=== PATIENT | male | born 1970 | race African-American/Black ===

== ENCOUNTER 2017-02-10 16:40 | Inpatient (IN) | payer MEDICAID, OTHER ==
[~2017-02-10] VITALS: Ht 167.6 cm; Wt 78.3 kg
[2017-02-10] MEDS ORDERED: ATEN50TA PO (17:42)
[2017-02-10] MEDS ORDERED: LOSA50TA6 PO (17:42)
[2017-02-10 17:54] LABS: BASOPHILS % 0.2 % (0.0-2.0); EOSINOPHILS % 0.4 % (0.0-7.0); HEMATOCRIT 29.1 % (42.0-52.0); HEMOGLOBIN 9.5 g/dl (14.0-18.0); LYMPHOCYTES # 1.8 10^3/ul (0.8-2.9); LYMPHOCYTES % 17.4 % (15.0-51.0); MEAN CORPUSCULAR HEMOGLOBIN 28.2 pg (29.0-33.0); MEAN CORPUSCULAR HGB CONC 32.6 g/dl (32.0-37.0); MEAN CORPUSCULAR VOLUME 86.4 fl (82.0-101.0); MEAN PLATELET VOLUME 12.8 fl (7.4-10.4); MONOCYTE # 0.6 10^3/ul (0.3-0.9); MONOCYTES % 5.7 % (0.0-11.0); NEUTROPHIL # 7.9 10^3/ul (1.6-7.5); PLATELET COUNT 142 10^3/UL (140-415); RED BLOOD COUNT 3.37 10^6/ul (4.70-6.10); RED CELL DISTRIBUTION WIDTH 12.8 % (11.5-14.5); WHITE BLOOD COUNT 10.4 10^3/ul (4.8-10.8)
[2017-02-10 18:09] LABS: INR 1.16; PROTIME 14.9 Sec (12.2-14.2); PT RATIO 1.2
[2017-02-10 18:10] LABS: PARTIAL THROMBOPLASTIN TIME 28.3 Sec (25.0-35.0)
[2017-02-10 18:13] LABS: CREATININE 1.14 mg/dl (0.61-1.24); POTASSIUM 3.3 mmol/L (3.5-5.1)
--- NOTE | 2017-02-10 18:18 | ERD ---
ER Documentation Chief Complaint Chief Complaint RECTAL BLEEDING HPI This is a very pleasant 46-year-old male who presents to the emergency room with less than 12 hours of rectal bleeding. He describes approximately 3 episodes of bright red blood per rectum. It is painless. He denies any hematemesis nausea or vomiting. No abdominal pain or cramping. He did have some mild lightheadedness but no syncope. No recent travel sick contacts or antibiotics. He does take aspirin daily but denies any epigastric pain or melena. ROS All systems reviewed and are negative except as per history of present illness. Medications Home Meds Reported Medications Atenolol* (Atenolol*) 50 Mg Tablet, 50 MG PO DAILY, #30 TAB 02/10/17 Losartan Potassium* (Losartan Potassium*) 50 Mg Tablet, 50 MG PO DAILY, TAB 02/10/17 Allergies Allergies: Coded Allergies: No Known Allergy (Unverified , 02/10/17) PMhx/Soc History of Surgery: No Anesthesia Reaction: No Hx Neurological Disorder: No Hx Respiratory Disorders: No Hx Cardiac Disorders: Yes (HTN) Hx Psychiatric Problems: No Hx Miscellaneous Medical Probl: No Hx Alcohol Use: No Hx Substance Use: No Hx Tobacco Use: No Smoking Status: Never smoker FmHx Family History: No diabetes Physical Exam Vitals Vital Signs Date Time Temp Pulse Resp B/P Pulse Ox O2 Delivery O2 Flow Rate FiO2 02/10/17 16:42 97.9 72 18 177/85 100 Physical Exam General: Well developed, well nourished, no acute distress Head: Normocephalic, atraumatic. Eyes: Pupils equally reactive, EOM intact ENT: Moist mucous membranes Neck: Supple, no lymphadenopathy Respiratory: Lungs clear bilaterally, no distress Cardiovascular: RRR, no murmurs, rubs, or gallops Abdominal: Soft, non-tender, non-distended, no peritoneal signs : Chaperoned digital rectal examination reveals bright red blood, no external/ internal hemorrhoids, no melena, normal prostate without tenderness or bogginess MSK: No edema, no unilateral swelling, 5/5 strength Neurologic: Alert and oriented, moving all extremities, normal speech, no focal weakness, no cerebellar signs Skin: No rash no petechia or purpura Psych: Normal mood Result Diagram: 02/10/17 1737 02/10/17 1737 Results 24 hrs Laboratory Tests Test 02/10/17 17:37 White Blood Count 10.410^3/ul Red Blood Count 3.3710^6/ul Hemoglobin 9.5g/dl Hematocrit 29.1% Mean Corpuscular Volume 86.4fl Mean Corpuscular Hemoglobin 28.2pg Mean Corpuscular Hemoglobin Concent 32.6g/dl Red Cell Distribution Width 12.8% Platelet Count 67574^3/UL Mean Platelet Volume 12.8fl Neutrophils % 76.0% Lymphocytes % 17.4% Monocytes % 5.7% Eosinophils % 0.4% Basophils % 0.2% Nucleated Red Blood Cells % 0.0/100WBC Neutrophils # 7.910^3/ul Lymphocytes # 1.810^3/ul Monocytes # 0.610^3/ul Eosinophils # 0.010^3/ul Basophils # 0.010^3/ul Nucleated Red Blood Cells # 0.010^3/ul Prothrombin Time 14.9Sec Prothrombin Time Ratio 1.2 INR International Normalized Ratio 1.16 Activated Partial Thromboplast Time 28.3Sec Sodium Level 140mmol/L Potassium Level 3.3mmol/L Chloride Level 105mmol/L Carbon Dioxide Level 25mmol/L Anion Gap 13 Blood Urea Nitrogen 25mg/dl Creatinine 1.14mg/dl Glucose Level 99mg/dl Calcium Level 8.0mg/dl Current Medications Medications (Trade) Dose Ordered Sig/Devyn Route PRN Reason Start Time Stop Time Status Last Admin Dose Admin Ondansetron HCl (Zofran Inj) 4 mg BRIDGE ORDER PRN IV NAUSEA AND/OR VOMITING 02/10/17 19:00 02/11/17 18:59 Acetaminophen (Tylenol Tab) 650 mg ER BRIDGE PRN PO MILD PAIN/FEVER 02/10/17 19:00 02/11/17 18:59 Procedures/MDM EKG, MONITORS, & DIAGNOSTIC IMAGING: EKG: I reviewed and interpreted a 12-lead EKG. Rhythm: Normal sinus rhythm Ectopy: None Intervals: No abnormalities ST segments: No elevations or depressions T waves: No contiguous inversions LAB INTERPRETATION: Anemia of 9.5 MEDICAL DECISION MAKING: The patient presents with multiple episodes of bright red blood per rectum. This is likely consistent with acute lower GI bleed likely secondary to diverticulosis. The patient has a benign abdominal exam without signs or symptoms concerning for AV malformation or acute intra-abdominal process. He has no risk factors for aortoenteric fistula. He does not describe any diarrhea , melena or hematemesis. He has no risk factors for significant upper GI bleed. The only concerning symptom is that the patient had an episode of near syncope earlier today. He denied any prodrome of chest pain or shortness of breath. His EKG shows no evidence of arrhythmia. This does raise the concern for more brisk lower GI bleed. Additionally, the patient has a hemoglobin of 9.5 with no known history of anemia. These are concerning for more significant lower GI bleed that would warrant hospitalization, serial hemoglobin and likely GI consultation in the morning for potential colonoscopy. At this time I do not believe the patient warrants CT imaging of the abdomen and pelvis. He has a large-bore peripheral IV. He was typed and screened. No indication for transfusion. He is hemodynamically stable and asymptomatic currently. I kept the patient and/or family informed of laboratory and diagnostic imaging results throughout the emergency room course. DISPOSITION PLAN: Medical surgical admission for management of lower GI bleed CONSULTATION: Accepting care team and consultations: I discussed the current laboratory data, diagnostic imaging and emergency care provided. Admitting team: Dr. Nick Admitting team indication: Insurance directed Departure Diagnosis: Primary Impression: Lower GI bleed Additional Impression: Anemia Anemia type: unspecified type Qualified Code: D64.9 - Anemia, unspecified type Condition: Stable JOE ANN MD Feb 10, 2017 18:18
[2017-02-10] MEDS ORDERED: ACETAMINOPHEN 325 MG TAB PO PRN ×2 (19:00→20:30)
[2017-02-10] MEDS ORDERED: ONDANSETRON 4 MG INJ IV PRN ×2 (19:00→20:30)
[2017-02-10] MEDS ORDERED: SOD CHLORIDE 0.9% 1,000 ML IV SCH (20:26)
[2017-02-10] MEDS ORDERED: BISACODYL (EC) 5 MG TAB PO PRN (20:30)
[2017-02-10] MEDS ORDERED: NACL 0.9% 3 ML SYG IV SCH (20:30)
[2017-02-10] MEDS ORDERED: DOCUSATE SODIUM 100 MG CAP PO PRN (20:30)
[2017-02-10 21:45] VITALS: BP 185/103; RESP 20
[2017-02-10] MEDS ORDERED: POTASSIUM CHLORIDE 250 ML IVPB ONE (22:00)
[2017-02-10 22:08] VITALS: Ht 167.6 cm; Wt 78.3 kg
[2017-02-10 23:10] VITALS: BP 141/89
--- NOTE | 2017-02-11 01:01 | HP ---
Date/Time of Note Date/Time of Note DATE: 02/11/17 TIME: 00:57 Assessment/Plan VTE Prophylaxis VTE Prophylaxis Intervention: SCD's Lines/Catheters IV Catheter Type (from [facility] Saline Lock Assessment/Plan Chief Complaint/Hosp Course This ss a 38-year-old male being admitted to the [facility] floor for: #1 bright red blood per rectum: Patient's hemoglobin is 9.5. At the current time will check hemoglobin every 6 hours. Will check a fecal occult stool. Keep the patient n.p.o. Provide normal saline IV fluid hydration. BUN elevated at 25. Consult GI. Protonix IV. #2 hypokalemia: We will replete with KCl, also check a magnesium level. #3 hypertension: At the current time I will hold patient's blood pressure medications secondary to #1. And put in a as needed hydralazine order for systolic greater than 170. #4 thrombocytopenia: We will check HIV, HCV, may need hematology consultation. #5 bradycardia: patient asymptomatic, will hold atenolol. continue to monitor. Will need to replace with a different antihypertensive as I don't see any indication for atenolol in the setting of bradycardia. #6 DVT GI prophylaxis: SCDs, Protonix Further treatment strategy will be implemented as per the clinical course Problems: HPI/ROS Admit Date/Time Admit Date/Time Feb 10, 2017 at 18:36 Hx of Present Illness This is a very pleasant 46-year-old male who presents to the emergency room with less than 12 hours of rectal bleeding. He describes approximately 3 episodes of bright red blood per rectum. It is painless. He denies any hematemesis nausea or vomiting. No abdominal pain or cramping. He did have some mild lightheadedness but no syncope. No recent travel sick contacts or antibiotics. He does take aspirin daily but denies any epigastric pain or melena. Allergies: NKDA Medications: See NICOLA MAGUIRE Const: As per HPI Eyes : No pain discharge or redness or change in visual acuity ENT: No pain, sore throat, congestion, congestion, dysphagia or discharge Respiratory: No shortness of breath, cough, sputum, wheezing, or pleuritic pain Cardiovascular: No chest pain, palpitation, PND, or edema GI : As per HPI Genitourinary: No dysuria, hematuria, flank pain , discharge or CVA tenderness Musculoskeletal: No joint pain, back pain, neck pain, restricted range of motion in neck or joints Skin: No rash, bruising or hives Neuro: No headache, dizziness, syncope, seizure, focal weakness Endocrine: No polyuria, polydipsia, temperature intolerance Psych: No hallucination, depression, anxiety or suicidal ideation PMH/Family/Social Past Medical History Hypertension Past Surgical History Past Surgical Hx: no surgical history Family History Significant Family History: no pertinent family hx Social History Alcohol Use: none Smoking Status: Never smoker Drug Use: none Exam/Review of Systems Vital Signs Vitals Vital Signs Date Time Temp Pulse Resp B/P Pulse Ox O2 Delivery O2 Flow Rate FiO2 02/10/17 23:10 54 141/89 99 02/10/17 21:45 98.3 20 02/10/17 20:23 Room Air Exam Exam General: Patient is well-developed well-nourished The patient is alert oriented -3 lying comfortably in bed. HEENT: Atraumatic, normocephalic. The pupils are equal, round and reactive. Extraocular motor are intact Neck: Supple with full range of motion. No rigidity or meningismus Chest: Nontender Lungs: Clear to auscultation bilaterally no crackles rales or wheezing Heart: Normal S1-S2, Regular rhythm and rate. No murmur, S3, or S4 Abdomen: Soft , nontender, nondistended , bowel sounds are present. No guarding no rebound tenderness , No masses or organomegaly. No costovertebral temporal angle mass Extremities: Normal to inspection, no edema no cyanosis Neurologic: Normal mental status, speech normal, cranial nerves II through XII are intact, motor and sensory are intact, no focal weakness Rectal: Deferred however patient did show me a picture of his bloody BM that he took. Additional Comments EKG: I reviewed and interpreted a 12-lead EKG. Rhythm: Normal sinus rhythm Ectopy: None Intervals: No abnormalities ST segments: No elevations or depressions T waves: No contiguous inversions As per ED physician documentation Labs Result Diagram: 02/10/17173602/10/171736 Medications Medications Current Medications Sodium Chloride (NS) 1,000 ml @ 80 mls/hr [id number] IV Last administered on t 22:07; Admin Dose 80 MLS/HR; Start 02/10/17 at 20:26 Ondansetron HCl (Zofran Inj) 4 mg Q6H PRN IV NAUSEA AND/OR VOMITING; Start at 20:30 Acetaminophen (Tylenol Tab) 650 mg Q6H PRN PO PAIN LEVEL 1-3 OR FEVER; Start 02/10/17 at 20:30 Docusate Sodium (Colace) 100 mg Q12H PRN PO CONSTIPATION; Start 02/10/17 at 20 :30 Bisacodyl (Dulcolax) 5 mg DAILY PRN PO CONSTIPATION; Start 02/10/17 at 20:30 Pantoprazole 40 mg 40 mg DAILY@06 IV ; Start 02/11/17 at 06:00 Potassium Chloride (KCl 40 MEQ/250 ML NS) 250 ml @ 62.5 mls/hr ONCE ONCE IVPB Last administered on 02/10/17t 23:50; Admin Dose 62.5 MLS/HR; Start at 22:00; Stop 02/11/17 at 01:59 Hydralazine HCl (Apresoline) 10 mg Q4H PRN IV ELEVATED SYSTOLIC BP; Start at 23:00 MIRTHA BAILEY Feb 11, 2017 01:01
[2017-02-11 02:00] VITALS: BP 136/84; RESP 20
[2017-02-11] MEDS: PANTOPRAZOLE 40 MG INJ IV SCH (05:27)
[2017-02-11 06:15] LABS: BASOPHILS % 0.2 % (0.0-2.0); EOSINOPHILS # 0.1 10^3/ul (0.0-0.5); EOSINOPHILS % 2.4 % (0.0-7.0); HEMATOCRIT 24.3 % (42.0-52.0); LYMPHOCYTES # 1.4 10^3/ul (0.8-2.9); LYMPHOCYTES % 31.1 % (15.0-51.0); MEAN CORPUSCULAR HEMOGLOBIN 28.3 pg (29.0-33.0); MEAN CORPUSCULAR HGB CONC 32.9 g/dl (32.0-37.0); MEAN CORPUSCULAR VOLUME 85.9 fl (82.0-101.0); MEAN PLATELET VOLUME 12.6 fl (7.4-10.4); MONOCYTE # 0.3 10^3/ul (0.3-0.9); MONOCYTES % 7.2 % (0.0-11.0); NEUTROPHIL # 2.7 10^3/ul (1.6-7.5); NEUTROPHILS % 58.9 % (39.0-77.0); PLATELET COUNT 125 10^3/UL (140-415); RED BLOOD COUNT 2.83 10^6/ul (4.70-6.10); RED CELL DISTRIBUTION WIDTH 13.1 % (11.5-14.5); WHITE BLOOD COUNT 4.6 10^3/ul (4.8-10.8)
[2017-02-11 06:58] LABS: IRON 53 ug/dl (35-150)
[2017-02-11 07:08] LABS: TOTAL IRON BINDING CAPACITY 347 ug/dl (241-421)
[2017-02-11 07:24] LABS: ALBUMIN 2.9 g/dl (3.3-4.9); ALBUMIN/GLOBULIN RATIO 1.07; BILIRUBIN,INDIRECT 0.5 mg/dl (0-1.1); BILIRUBIN,TOTAL 0.5 mg/dl (0.2-1.3); CALCIUM 8.1 mg/dl (8.4-10.2); CHOL/HDL RATIO 4.1 RATIO; CREATININE 1.06 mg/dl (0.61-1.24); POTASSIUM 3.9 mmol/L (3.5-5.1); TOTAL PROTEIN 5.6 g/dl (6.1-8.1)
[2017-02-11 07:33] LABS: THYROID STIMULATING HORMONE 1.67 MIU/L (0.465-4.680)
[2017-02-11 07:58] VITALS: BP 137/87; RESP 18
[2017-02-11] MEDS ORDERED: ATENOLOL 50 MG TAB PO SCH (09:00)
[2017-02-11] MEDS ORDERED: LOSARTAN 50 MG TAB PO SCH (09:00)
--- NOTE | 2017-02-11 11:18 | PN ---
Date/Time of Note Date/Time of Note DATE: 02/11/17 TIME: 11:15 Assessment/Plan VTE Prophylaxis VTE Prophylaxis Intervention: contraindicated Lines/Catheters IV [facility] Peripheral IV Assessment/Plan Chief Complaint/Hosp Course Subjective: Still bleeding. Bright red blood per rectum. No abdominal pain fever nausea vomiting. No family history of cancer etc. No warning signs. States he had some pumpkin seeds the other day. Dizziness weakness. No loss of speech or vision. Objective: Vital signs stable. His exam No pallor adenopathy Regular no murmur rub gallop Clear Bs+ mild tender nontender nondistended no rigidity rebound guarding Edema rash Assessment plan 1. Lower GI bleed probably diverticulosis. Stable, n.p.o. IV fluids colonoscopy. Probable diverticular diet management 2. Acute blood loss anemia 3. Chronic hypertension 4. Sinus bradycardia asymptomatic. tsh o -May proceed to colonoscopy from medical standpoint.. Problems: Exam/Review of Systems Vital Signs Vitals Vital Signs Date Time Temp Pulse Resp B/P Pulse Ox O2 Delivery O2 Flow Rate FiO2 02/11/17 07:58 98.5 62 18 137/87 100 02/10/17 20:23 Room Air Intake and Output 02/10/17 02/10/17 02/11/17 15:00 23:00 07:00 Intake Total 594 ml Output Total 300 ml Balance 294 ml Results Result Diagram: 02/11/17 0542 02/11/17 0541 Results 24 hrs Laboratory Tests Test 02/10/17 17:37 02/11/17 05:41 02/11/17 05:42 02/11/17 05:45 White Blood Count 10.4 4.6 #L Red Blood Count 3.37 L 2.83 L Hemoglobin 9.5 L 8.0 L Hematocrit 29.1 L 24.3 L Mean Corpuscular Volume 86.4 85.9 Mean Corpuscular Hemoglobin 28.2 L 28.3 L Mean Corpuscular Hemoglobin Concent 32.6 32.9 Red Cell Distribution Width 12.8 13.1 Platelet Count 142 125 L Mean Platelet Volume 12.8 H 12.6 H Neutrophils % 76.0 58.9 Lymphocytes % 17.4 31.1 Monocytes % 5.7 7.2 Eosinophils % 0.4 2.4 Basophils % 0.2 0.2 Nucleated Red Blood Cells % 0.0 0.0 Neutrophils # 7.9 H 2.7 Lymphocytes # 1.8 1.4 Monocytes # 0.6 0.3 Eosinophils # 0.0 0.1 Basophils # 0.0 0.0 Nucleated Red Blood Cells # 0.0 0.0 Prothrombin Time 14.9 H Prothrombin Time Ratio 1.2 INR International Normalized Ratio 1.16 Activated Partial Thromboplast Time 28.3 Sodium Level 140 144 Potassium Level 3.3 L 3.9 Chloride Level 105 112 H Carbon Dioxide Level 25 27 Anion Gap 13 9 Blood Urea Nitrogen 25 H 19 Creatinine 1.14 1.06 Glucose Level 99 93 Calcium Level 8.0 L 8.1 L Magnesium Level 1.8 Iron Level 53 Total Iron Binding Capacity 347 Percent Iron Saturation 15 L Total Bilirubin 0.5 Direct Bilirubin 0.00 Indirect Bilirubin 0.5 Aspartate Amino Transf (AST/SGOT) 17 Alanine Aminotransferase (ALT/SGPT) 28 Alkaline Phosphatase 38 L Total Protein 5.6 L Albumin 2.9 L Globulin 2.70 Albumin/Globulin Ratio 1.07 Triglycerides Level 76 Cholesterol Level 117 LDL Cholesterol, Calculated 74 HDL Cholesterol 28 Cholesterol/HDL Ratio 4.1 Thyroid Stimulating Hormone (TSH) 1.670 Hemoglobin A1c 5.2 Hepatitis C Antibody NEGATIVE HIV (1&2) Antibody NEGATIVE Medications Medications Current Medications Sodium Chloride (NS) 1,000 ml @ 80 mls/hr [id number] IV Last administered on 22:07; Admin Dose 80 MLS/HR; Start 02/10/17 at 20:26 Ondansetron HCl (Zofran Inj) 4 mg Q6H PRN IV NAUSEA AND/OR VOMITING; Start at 20:30 Acetaminophen (Tylenol Tab) 650 mg Q6H PRN PO PAIN LEVEL 1-3 OR FEVER; Start 02/10/17 at 20:30 Docusate Sodium (Colace) 100 mg Q12H PRN PO CONSTIPATION; Start 02/10/17 at 20 :30 Bisacodyl (Dulcolax) 5 mg DAILY PRN PO CONSTIPATION; Start 02/10/17 at 20:30 Pantoprazole (Protonix Iv) 40 mg DAILY@06 IV Last administered on 02/11/17 05 :27; Admin Dose 40 MG; Start 02/11/17 at 06:00 Hydralazine HCl (Apresoline) 10 mg Q4H PRN IV ELEVATED SYSTOLIC BP; Start at 23:00 PAUL TEMPLE MD Feb 11, 2017 11:18
[2017-02-11] MEDS: D5W-0.45 NACL + KCL 10 MEQ 1,000 ML IV SCH ×2 (13:06→21:30)
--- NOTE | 2017-02-11 13:32 | RADRPT ---
PROCEDURE: XR Chest. CLINICAL INDICATION: Cough. TECHNIQUE: Single frontal view. COMPARISON: None. FINDINGS: The lungs are clear. The heart size is normal. There is no pleural effusion. There is no pneumothorax. IMPRESSION: 1. Normal chest radiograph. RPTAT: QQ .Urbano Becker MD, Date Time Electronically viewed and signed by .Urbano Becker MD, on 02/11/2017 13:31 .R/
[2017-02-11 13:34] LABS: BASOPHILS % 0.2 % (0.0-2.0); EOSINOPHILS # 0.1 10^3/ul (0.0-0.5); EOSINOPHILS % 1.2 % (0.0-7.0); HEMATOCRIT 23.6 % (42.0-52.0); HEMOGLOBIN 7.8 g/dl (14.0-18.0); LYMPHOCYTES # 1.6 10^3/ul (0.8-2.9); MEAN CORPUSCULAR HEMOGLOBIN 28.6 pg (29.0-33.0); MEAN CORPUSCULAR HGB CONC 33.1 g/dl (32.0-37.0); MEAN CORPUSCULAR VOLUME 86.4 fl (82.0-101.0); MEAN PLATELET VOLUME 12.6 fl (7.4-10.4); MONOCYTE # 0.3 10^3/ul (0.3-0.9); MONOCYTES % 7.9 % (0.0-11.0); NEUTROPHIL # 2.3 10^3/ul (1.6-7.5); NEUTROPHILS % 53.5 % (39.0-77.0); PLATELET COUNT 112 10^3/UL (140-415); RED BLOOD COUNT 2.73 10^6/ul (4.70-6.10); RED CELL DISTRIBUTION WIDTH 13.2 % (11.5-14.5); WHITE BLOOD COUNT 4.3 10^3/ul (4.8-10.8)
[2017-02-11 14:25] VITALS: BP 147/83; RESP 16
--- NOTE | 2017-02-11 16:10 | CONS ---
Date/Time of Note Date/Time of Note DATE: 02/11/17 TIME: 15:38 Assessment/Plan Assessment/Plan Chief Complaint/Hosp Course Assessment: Hematochezia/Diarrhea/Anemia R/O IBD, Diverticular, Neoplasm, AVM, hemorrhoids vs others Hypertension Plan: Colonoscopy, patient informed R/B/A. Agreeable to proceed. Monitor H/H transfuse for Hgb <7.5 Patient seen in collaboration with Gary Loya . Problems: Consultation Date/Type/Reason Admit Date/Time Feb 10, 2017 at 18:36 Date of Consultation: Feb 11, 2017 Type of Consultation: GI Reason for Consultation Hematochezia Hx of Present Illness This is a 46-year-old male admitted last night for rectal bleeding. He describes having 4 episodes of diarrhea with bright red blood per rectum and dark blood clots. No c/o abdominal pain, no anorectal Sx's.. He denies any hematemesis nausea or vomiting. He described feeling lightheaded like he was going pass out before coming to the emergency room. No recent travel. Mentioned eating some nuts and pumpkin seeds prior to the onset of bleeding. He does take aspirin daily but denies any epigastric pain. Eyes: no complaints ENT: no complaints, No bleeding, No congestion, No discharge, No dysphagia, No other, No pain, No sore throat Respiratory: no complaints Cardiovascular: no complaints Gastrointestinal: other (see HPI) Genitourinary: no complaints Musculoskeletal: no complaints Skin: no complaints Neurologic: no complaints Endocrine: no complaints Lymphatic: no complaints Psychological: no complaints Past Medical History Medical History: hypertension Past Surgical History Past Surgical Hx: no surgical history Family History Significant Family History: no pertinent family hx Social History Alcohol Use: none Smoking Status: Never smoker Drug Use: none Exam/Review of Systems Vital Signs Vitals Vital Signs Date Time Temp Pulse Resp B/P Pulse Ox O2 Delivery O2 Flow Rate FiO2 02/11/17 14:25 98.2 67 16 147/83 100 02/10/17 20:23 Room Air Intake and Output 02/10/17 02/10/17 02/11/17 15:00 23:00 07:00 Intake Total 594 ml Output Total 300 ml Balance 294 ml Exam PHYSICAL EXAMINATION: GENERAL: Well developed, well nourished, alert & oriented x 3, in no acute distress SKIN: No lesions, no stigmata chronic liver disease, no evidence of bleeding diathesis LYMPHATIC: No palpable lymphadenopathy. HEAD: Normocephalic, atraumatic, no tenderness. EYES: Pupils equal reactive to light and accommodation, full extraocular movements, sclera clear, non-icteric, no discharge. EARS/NOSE AND THROAT: Ears normal, nose normal, oropharynx normal, oral membranes well hydrated without lesions. NECK: Supple, no masses, thyroid normal, JVP within normal limits, carotids normal without bruits. CHEST: Inspection within normal limits. CARDIOVASCULAR: Heart: Regular rate and rhythm, no murmurs, gallops or rubs. Peripheral pulses present within normal limits, no cyanosis, clubbing or edemas. No pulsatile abdominal mass RESPIRATORY: Lungs clear to auscultation and percussion, no wheezing, no rubs GASTROINTESTINAL AND LIVER: Abdomen: Soft, non tenderness, non-distended, no hernias, no masses, no organomegaly, no ascites, no guarding, no rebound tenderness, normoactive bowel sounds. Rectal: Deferred to colonoscopy GENITOURINARY: [Male genitalia within normal limits.] EXTREMITIES: No cyanosis, clubbing or edema. [MUSCULO-SKELETAL: Gait and station within normal limits, range of motion adequate.] [NEUROLOGIC: Cranial nerves II-XII intact, Motor within normal limits, Sensory within normal limits. Reflexes within normal limits. PSYCHIATRIC: Alert & oriented x 3, mood/affect/judgement adequate] Results Result Diagram: 02/11/17 1248 02/11/17 0541 Results 24 hrs Laboratory Tests Test 02/10/17 17:37 02/11/17 05:41 02/11/17 05:42 02/11/17 05:45 White Blood Count 10.4 4.6 #L Red Blood Count 3.37 L 2.83 L Hemoglobin 9.5 L 8.0 L Hematocrit 29.1 L 24.3 L Mean Corpuscular Volume 86.4 85.9 Mean Corpuscular Hemoglobin 28.2 L 28.3 L Mean Corpuscular Hemoglobin Concent 32.6 32.9 Red Cell Distribution Width 12.8 13.1 Platelet Count 142 125 L Mean Platelet Volume 12.8 H 12.6 H Neutrophils % 76.0 58.9 Lymphocytes % 17.4 31.1 Monocytes % 5.7 7.2 Eosinophils % 0.4 2.4 Basophils % 0.2 0.2 Nucleated Red Blood Cells % 0.0 0.0 Neutrophils # 7.9 H 2.7 Lymphocytes # 1.8 1.4 Monocytes # 0.6 0.3 Eosinophils # 0.0 0.1 Basophils # 0.0 0.0 Nucleated Red Blood Cells # 0.0 0.0 Prothrombin Time 14.9 H Prothrombin Time Ratio 1.2 INR International Normalized Ratio 1.16 Activated Partial Thromboplast Time 28.3 Sodium Level 140 144 Potassium Level 3.3 L 3.9 Chloride Level 105 112 H Carbon Dioxide Level 25 27 Anion Gap 13 9 Blood Urea Nitrogen 25 H 19 Creatinine 1.14 1.06 Glucose Level 99 93 Calcium Level 8.0 L 8.1 L Magnesium Level 1.8 Iron Level 53 Total Iron Binding Capacity 347 Percent Iron Saturation 15 L Total Bilirubin 0.5 Direct Bilirubin 0.00 Indirect Bilirubin 0.5 Aspartate Amino Transf (AST/SGOT) 17 Alanine Aminotransferase (ALT/SGPT) 28 Alkaline Phosphatase 38 L Total Protein 5.6 L Albumin 2.9 L Globulin 2.70 Albumin/Globulin Ratio 1.07 Triglycerides Level 76 Cholesterol Level 117 LDL Cholesterol, Calculated 74 HDL Cholesterol 28 Cholesterol/HDL Ratio 4.1 Thyroid Stimulating Hormone (TSH) 1.670 Hemoglobin A1c 5.2 Hepatitis C Antibody NEGATIVE HIV (1&2) Antibody NEGATIVE Test 02/11/17 12:48 White Blood Count 4.3 L Red Blood Count 2.73 L Hemoglobin 7.8 L Hematocrit 23.6 L Mean Corpuscular Volume 86.4 Mean Corpuscular Hemoglobin 28.6 L Mean Corpuscular Hemoglobin Concent 33.1 Red Cell Distribution Width 13.2 Platelet Count 112 L Mean Platelet Volume 12.6 H Neutrophils % 53.5 Lymphocytes % 37.0 Monocytes % 7.9 Eosinophils % 1.2 Basophils % 0.2 Nucleated Red Blood Cells % 0.0 Neutrophils # 2.3 Lymphocytes # 1.6 Monocytes # 0.3 Eosinophils # 0.1 Basophils # 0.0 Nucleated Red Blood Cells # 0.0 Medications Medications Current Medications Ondansetron HCl (Zofran Inj) 4 mg Q6H PRN IV NAUSEA AND/OR VOMITING; Start at 20:30 Acetaminophen (Tylenol Tab) 650 mg Q6H PRN PO PAIN LEVEL 1-3 OR FEVER; Start 11/19/17 at 20:30 Docusate Sodium (Colace) 100 mg Q12H PRN PO CONSTIPATION; Start 02/10/17 at 20 :30 Bisacodyl (Dulcolax) 5 mg DAILY PRN PO CONSTIPATION; Start 02/10/17 at 20:30 Pantoprazole (Protonix Iv) 40 mg DAILY@06 IV Last administered on 02/11/17 05 :27; Admin Dose 40 MG; Start 02/11/17 at 06:00 Hydralazine HCl 10 mg 10 mg Q4H PRN IV ELEVATED SYSTOLIC BP; Start 02/10/17 at 23:00 Potassium Chloride/Dextrose/ Sod Cl (D5-1/2ns + KCl 10 Meq) 1,000 ml @ 100 mls/ hr Q10H IV Last administered on 02/11/17 13:06; Admin Dose 100 MLS/HR; Start 02/11/17 at 11:30 LUIS SALEEM NP Feb 11, 2017 15:52
[2017-02-11] MEDS ORDERED: BISACODYL (EC) 5 MG TAB PO ONE (16:30)
[2017-02-11] MEDS ORDERED: MAGNESIUM CITRATE 300 ML BTL PO ONE (17:30)
[2017-02-11 17:52] LABS: BASOPHILS % 0.2 % (0.0-2.0); EOSINOPHILS # 0.1 10^3/ul (0.0-0.5); EOSINOPHILS % 1.6 % (0.0-7.0); HEMATOCRIT 24.4 % (42.0-52.0); HEMOGLOBIN 7.9 g/dl (14.0-18.0); LYMPHOCYTES % 45.5 % (15.0-51.0); MEAN CORPUSCULAR HEMOGLOBIN 28.1 pg (29.0-33.0); MEAN CORPUSCULAR HGB CONC 32.4 g/dl (32.0-37.0); MEAN CORPUSCULAR VOLUME 86.8 fl (82.0-101.0); MEAN PLATELET VOLUME 12.4 fl (7.4-10.4); MONOCYTE # 0.4 10^3/ul (0.3-0.9); MONOCYTES % 8.1 % (0.0-11.0); NEUTROPHIL # 1.9 10^3/ul (1.6-7.5); NEUTROPHILS % 44.6 % (39.0-77.0); PLATELET COUNT 120 10^3/UL (140-415); RED BLOOD COUNT 2.81 10^6/ul (4.70-6.10); RED CELL DISTRIBUTION WIDTH 13.2 % (11.5-14.5); WHITE BLOOD COUNT 4.3 10^3/ul (4.8-10.8)
[2017-02-11] MEDS ORDERED: POLYETHYLENE GLYCOL 3350 119 GM POWDER PO ONE (18:30)
[2017-02-11 19:40] VITALS: BP 170/100; RESP 16
[2017-02-11] MEDS: hydrALAzine 20 MG INJ IV PRN (19:43)
[2017-02-11 20:40] VITALS: BP 135/75; PULSE 75
[2017-02-11] MEDS ORDERED: [UNRECOGNIZED DRUG - OTHER] PO (20:50)
[2017-02-12] VITALS (14 sets, daily range): BP systolic 121–167; BP diastolic 60–97; PULSE 68–90; RESP 10–21
[2017-02-12] MEDS: D5W-0.45 NACL + KCL 10 MEQ 1,000 ML IV SCH ×4 (00:06→19:30)
[2017-02-12 01:43] LABS: HEMATOCRIT 24.7 % (42.0-52.0); HEMOGLOBIN 8.1 g/dl (14.0-18.0)
[2017-02-12] MEDS: PANTOPRAZOLE 40 MG INJ IV SCH (05:31)
[2017-02-12] MEDS ORDERED: POLYETHYLENE GLYCOL 3350 119 GM POWDER PO ONE (06:00)
[2017-02-12 06:06] LABS: HEMATOCRIT 22.4 % (42.0-52.0); HEMOGLOBIN 7.5 g/dl (14.0-18.0)
[2017-02-12 06:47] LABS: INR 1.1; PROTIME 14.2 Sec (12.2-14.2); PT RATIO 1.1
[2017-02-12 06:53] LABS: ALBUMIN 3.2 g/dl (3.3-4.9); ALBUMIN/GLOBULIN RATIO 1.28; BILIRUBIN,INDIRECT 0.3 mg/dl (0-1.1); BILIRUBIN,TOTAL 0.3 mg/dl (0.2-1.3); CALCIUM 7.8 mg/dl (8.4-10.2); CREATININE 1.06 mg/dl (0.61-1.24); POTASSIUM 3.3 mmol/L (3.5-5.1); TOTAL PROTEIN 5.7 g/dl (6.1-8.1)
[2017-02-12] MEDS ORDERED: BISACODYL (EC) 5 MG TAB PO ONE (08:00)
--- NOTE | 2017-02-12 12:45 | PN ---
Date/Time of Note Date/Time of Note DATE: 02/12/17 TIME: 12:43 Assessment/Plan VTE Prophylaxis VTE Prophylaxis Intervention: contraindicated, SCD's Lines/Catheters IV Catheter Type (from Nrs): Peripheral IV Assessment/Plan Chief Complaint/Hosp Course Subjective: 02/11 Still bleeding. Bright red blood per rectum. No abdominal pain fever nausea vomiting. No family history of cancer etc. No warning signs. States he had some pumpkin seeds the other day. Dizziness weakness. No loss of speech or vision. 111/; still having dark stool. ~exertional fatigue. Objective: Vital signs stable. PE No pallor Reg no murmur rub gallop Clear Bs+ mild tender nt nd; no r/r/g Edema rash A/P 1. Lower GI bleed probably diverticulosis. Stable, npo; IVf/ colonoscopy. Probable diverticular diet management 2. Acute blood loss anemia 3. Chronic hypertension 4. Sinus bradycardia asymptomatic. tsh ok. hold BB. -May proceed to colonoscopy from medical standpoint.. Problems: Exam/Review of Systems Vital Signs Vitals Vital Signs Date Time Temp Pulse Resp B/P Pulse Ox O2 Delivery O2 Flow Rate FiO2 02/12/17 10:30 98.9 70 18 133/84 100 Room Air Intake and Output 02/11/17 02/11/17 02/12/17 14:59 22:59 06:59 Intake Total 640 ml 400 ml 2810 ml Output Total 750 ml 1800 ml Balance 640 ml -350 ml 1010 ml Results Result Diagram: 02/12/17 0525 02/12/17 0525 Results 24 hrs Laboratory Tests Test 02/11/17 12:48 02/11/17 17:05 02/12/17 01:30 02/12/17 05:25 White Blood Count 4.3 L 4.3 L Red Blood Count 2.73 L 2.81 L Hemoglobin 7.8 L 7.9 L 8.1 L 7.5 L Hematocrit 23.6 L 24.4 L 24.7 L 22.4 L Mean Corpuscular Volume 86.4 86.8 Mean Corpuscular Hemoglobin 28.6 L 28.1 L Mean Corpuscular Hemoglobin Concent 33.1 32.4 Red Cell Distribution Width 13.2 13.2 Platelet Count 112 L 120 L Mean Platelet Volume 12.6 H 12.4 H Neutrophils % 53.5 44.6 Lymphocytes % 37.0 45.5 Monocytes % 7.9 8.1 Eosinophils % 1.2 1.6 Basophils % 0.2 0.2 Nucleated Red Blood Cells % 0.0 0.0 Neutrophils # 2.3 1.9 Lymphocytes # 1.6 2.0 Monocytes # 0.3 0.4 Eosinophils # 0.1 0.1 Basophils # 0.0 0.0 Nucleated Red Blood Cells # 0.0 0.0 Prothrombin Time 14.2 Prothrombin Time Ratio 1.1 INR International Normalized Ratio 1.10 Sodium Level 140 Potassium Level 3.3 L Chloride Level 108 Carbon Dioxide Level 26 Anion Gap 9 Blood Urea Nitrogen 10 # Creatinine 1.06 Glucose Level 117 Calcium Level 7.8 L Magnesium Level 2.1 Total Bilirubin 0.3 Direct Bilirubin 0.00 Indirect Bilirubin 0.3 Aspartate Amino Transf (AST/SGOT) 17 Alanine Aminotransferase (ALT/SGPT) 26 Alkaline Phosphatase 39 L Total Protein 5.7 L Albumin 3.2 L Globulin 2.50 Albumin/Globulin Ratio 1.28 Medications Medications Current Medications Ondansetron HCl (Zofran Inj) 4 mg Q6H PRN IV NAUSEA AND/OR VOMITING; Start at 20:30 Acetaminophen (Tylenol Tab) 650 mg Q6H PRN PO PAIN LEVEL 1-3 OR FEVER; Start 02/10/17 at 20:30 Docusate Sodium (Colace) 100 mg Q12H PRN PO CONSTIPATION; Start 02/10/17 at 20 :30 Bisacodyl (Dulcolax) 5 mg DAILY PRN PO CONSTIPATION; Start 02/10/17 at 20:30 Pantoprazole (Protonix Iv) 40 mg DAILY@06 IV Last administered on 02/12/17 05 :31; Admin Dose 40 MG; Start 02/11/17 at 06:00 Hydralazine HCl 10 mg 10 mg Q4H PRN IV ELEVATED SYSTOLIC BP Last administered on 02/11/17 19:43; Admin Dose 10 MG; Start 02/10/17 at 23:00 Potassium Chloride/Dextrose/ Sod Cl (D5-1/2ns + KCl 10 Meq) 1,000 ml @ 100 mls/ hr Q10H IV Last administered on 02/12/17 10:43; Admin Dose 100 MLS/HR; Start 02/11/17 at 11:30 PAUL TEMPLE MD Feb 12, 2017 12:44
[2017-02-12 12:53] LABS: HEMATOCRIT 25.2 % (42.0-52.0); HEMOGLOBIN 8.4 g/dl (14.0-18.0)
[2017-02-12] MEDS ORDERED: POTASSIUM CHLORIDE 50 ML IVPB SCH (13:00)
[2017-02-12] MEDS ORDERED: POTASSIUM CHLORIDE 20 MEQ in DEXTROSE 5% 100 ML IVPB SCH (14:30)
[2017-02-12] MEDS ORDERED: PROPOFOL 40 ML ONE (16:37)
--- NOTE | 2017-02-12 16:52 | OPPN ---
Date/Time of Note Date/Time of Note DATE: 02/12/17 TIME: 16:46 Proc Note GI Procedure Date 02/12/17 Indication: other (GI bleeding) Pre-procedure Diagnosis GI bleeding Post-procedure Diagnosis Impression: Mild R sided diverticulosis Moderate size internal hemorrhoids Normal terminal ileum Plan: Proceed with EGD as colonoscopy findings cannot account for the patient's significant anemia and evidence of bleeding . Procedure Performed: Colonoscopy Surgeon MCKINLEY GONSALES MD See signature line Orchid Worker none Anesthesia Type: MAC Anesthesiologist: EDWARD MÁRQUEZ MD Tourniquet Time none EBL none Transfusion required none Biopsy 1: None Grafts/Implants none Tubes/Drains none Complication(s) none Disposition: PACU Procedure Description After informed consent, with the patient/relatives understanding the procedure, its indications and potential risks and complications, including but not limited to: Allergic reaction, bleeding, perforation, infection, and after all pertinent questions were answered to the patient's satisfaction, the patient/ relatives signed the witnessed informed consent. Following this, premedication was administered slowly IV push under careful cardiovascular and respiratory monitoring with pulse OXIMETRY, automatic blood pressure, and engine monitor. Once the sedative effect was achieved, the patient was placed in the left lateral decubitus position, digital rectal examination was performed. The colonoscope was then introduced and advanced under visual control throughout all segments of the colon including: the rectum, sigmoid, descending colon, splenic flexure, transverse colon, hepatic flexure, ascending colon and finally reaching the cecum which was clearly identified by transillumination, finger indentation and the ileocecal valve. Careful examination of the mucosa of the lower gastrointestinal tract both on insertion as well as withdrawal of the instrument disclosed the following findings: PREPARATION QUALITY: [Adequate], RECTAL EXAM: The anorectal area was visualized examined and digital rectal examination performed with the following findings: No evidence of perirectal disease, no masses. COLONIC MUCOSA: The mucosa of all segments of the colon was carefully examined and showed the following findings: There is occasional diverticula in the right side of the colon. Moderate-sized internal hemorrhoids are present with no evidence of recent bleeding. Otherwise the examined mucosa appears within normal limits. There is no evidence of inflammatory changes, diverticular formation, polyps or other neoplasms, vascular malformation, or any other abnormality. No bleeding site or potential bleeding site found The instrument was then withdrawn, the patient tolerated the procedure well and was transferred out of the Endoscopy Suite awake and in good condition to continue recovery under observation. Copies To: CC: MCKINLEY GONSALES MD, MORDO MD Feb 12, 2017 16:52
[2017-02-12] MEDS ORDERED: LABETALOL HCL 20MG INJ IV PRN (17:00)
[2017-02-12] MEDS ORDERED: morphine (1 MG/ML) 10ML SYRINGE IV PRN ×2 (17:00)
[2017-02-12] MEDS ORDERED: ONDANSETRON 4 MG INJ IV PRN (17:00)
[2017-02-12] MEDS ORDERED: METOCLOPRAMIDE 10 MG INJ IV PRN (17:00)
[2017-02-12] MEDS ORDERED: hydrALAzine 20 MG INJ IV PRN (17:00)
[2017-02-12] MEDS ORDERED: DIPHENHYDRAMINE 50 MG INJ IV PRN (17:00)
[2017-02-12] MEDS ORDERED: FENTAnyl 50 MCG/ML VIAL IV PRN ×2 (17:00)
[2017-02-12] MEDS ORDERED: EPHEDrine SULFATE 50 MG/5 ML SYG IV PRN (17:00)
[2017-02-12] MEDS ORDERED: MEPERIDINE 25 MG INJ IV PRN (17:00)
[2017-02-12 19:30] LABS: HEMATOCRIT 23.9 % (42.0-52.0); HEMOGLOBIN 7.8 g/dl (14.0-18.0)
[2017-02-13] VITALS (12 sets, daily range): BP systolic 134–195; BP diastolic 78–103; PULSE 67–96; RESP 16–23
[2017-02-13 00:54] LABS: HEMATOCRIT 21.8 % (42.0-52.0)
[2017-02-13] MEDS: hydrALAzine 20 MG INJ IV PRN ×2 (04:48→14:07)
[2017-02-13] MEDS: PANTOPRAZOLE 40 MG INJ IV SCH (05:29)
[2017-02-13] MEDS: D5W-0.45 NACL + KCL 10 MEQ 1,000 ML IV SCH (10:01)
[2017-02-13 10:38] LABS: HEMATOCRIT 27.1 % (42.0-52.0); HEMOGLOBIN 8.8 g/dl (14.0-18.0)
[2017-02-13 12:24] LABS: HEMATOCRIT 29.4 % (42.0-52.0); HEMOGLOBIN 9.4 g/dl (14.0-18.0)
[2017-02-13 13:10] LABS: ALBUMIN 3.6 g/dl (3.3-4.9); ALBUMIN/GLOBULIN RATIO 1.33; BILIRUBIN,INDIRECT 0.2 mg/dl (0-1.1); BILIRUBIN,TOTAL 0.2 mg/dl (0.2-1.3); CALCIUM 8.2 mg/dl (8.4-10.2); CREATININE 1.04 mg/dl (0.61-1.24); POTASSIUM 4.1 mmol/L (3.5-5.1); TOTAL PROTEIN 6.3 g/dl (6.1-8.1)
--- NOTE | 2017-02-13 15:56 | PN ---
Date/Time of Note Date/Time of Note DATE: 02/13/17 TIME: 15:54 Assessment/Plan VTE Prophylaxis VTE Prophylaxis Intervention: SCD's Lines/Catheters IV Catheter Type (from Nrs): Peripheral IV Assessment/Plan Chief Complaint/Hosp Course Subjective: 02/11 Still bleeding. Bright red blood per rectum. No abdominal pain fever nausea vomiting. No family history of cancer etc. No warning signs. States he had some pumpkin seeds the other day. Dizziness weakness. No loss of speech or vision. ; still having dark stool. ~exertional fatigue. 02/13: No bleeding. Hungry. Colonoscopy only showed mild diverticulosis and hemorrhoids. EGD today. Objective: Vital signs stable. PE No pallor Reg +sm; no r/g Clear Bs+ mild tender nt nd; no r/r/g Edema rash A/P 1. Lower GI bleed? diverticulosis/ AVM? Stable, s/p colonoscopy. Probable diverticular? EGD today. -May proceed to EGD from medical standpoint 2. Acute blood loss anemia 3. Chronic hypertension 4. Sinus bradycardia asymptomatic. tsh ok. hold BB. 5. Systolic murmur. Check echo. Problems: Exam/Review of Systems Vital Signs Vitals Vital Signs Date Time Temp Pulse Resp B/P Pulse Ox O2 Delivery O2 Flow Rate FiO2 02/13/17 14:40 20 156/80 02/13/17 13:50 98.4 70 100 02/13/17 02:00 Room Air 02/12/17 16:53 2.0 Intake and Output 02/12/17 02/12/17 02/13/17 14:59 22:59 06:59 Intake Total 510 ml 410 ml 2125 ml Output Total 1700 ml 1900 ml Balance 510 ml -1290 ml 225 ml Results Result Diagram: 02/13/17 1153 02/13/17 1012 Results 24 hrs Laboratory Tests Test 02/12/17 18:59 02/13/17 00:29 02/13/17 06:35 02/13/17 10:12 Hemoglobin 7.8 L 7.0 L 8.8 #L Hematocrit 23.9 L 21.8 L 27.1 #L Lab Scanned Report BLOOD TRANSFUSION Sodium Level 141 Potassium Level 4.1 Chloride Level 106 Carbon Dioxide Level 25 Anion Gap 14 Blood Urea Nitrogen 7 Creatinine 1.04 Glucose Level 86 Calcium Level 8.2 L Magnesium Level 1.9 Total Bilirubin 0.2 Direct Bilirubin 0.00 Indirect Bilirubin 0.2 Aspartate Amino Transf (AST/SGOT) 21 Alanine Aminotransferase (ALT/SGPT) 31 Alkaline Phosphatase 42 Total Protein 6.3 Albumin 3.6 Globulin 2.70 Albumin/Globulin Ratio 1.33 Test 02/13/17 11:53 Hemoglobin 9.4 L Hematocrit 29.4 L Medications Medications Current Medications Ondansetron HCl (Zofran Inj) 4 mg Q6H PRN IV NAUSEA AND/OR VOMITING; Start at 20:30 Acetaminophen (Tylenol Tab) 650 mg Q6H PRN PO PAIN LEVEL 1-3 OR FEVER; Start 02/10/17 at 20:30 Docusate Sodium (Colace) 100 mg Q12H PRN PO CONSTIPATION; Start 02/10/17 at 20 :30 Bisacodyl (Dulcolax) 5 mg DAILY PRN PO CONSTIPATION; Start 02/10/17 at 20:30 Pantoprazole (Protonix Iv) 40 mg DAILY@06 IV Last administered on 02/13/17 05 :29; Admin Dose 40 MG; Start 02/11/17 at 06:00 Hydralazine HCl 10 mg 10 mg Q4H PRN IV ELEVATED SYSTOLIC BP Last administered on 02/13/17 14:07; Admin Dose 10 MG; Start 02/10/17 at 23:00 Potassium Chloride/Dextrose/ Sod Cl (D5-1/2ns + KCl 10 Meq) 1,000 ml @ 70 mls/ hr [id number] IV Last administered on 02/13/17 10:01; Admin Dose 70 MLS/HR; Start 02/11/17 at 11:30 PAUL TEMPLE MD Feb 13, 2017 15:56
[2017-02-13] MEDS ORDERED: PROPOFOL 20 ML ONE (16:24)
[2017-02-13] MEDS ORDERED: ONDANSETRON 4 MG INJ IV PRN (16:30)
[2017-02-13] MEDS ORDERED: hydrALAzine 20 MG INJ ONE (16:43)
--- NOTE | 2017-02-13 17:06 | OPPN ---
Date/Time of Note Date/Time of Note DATE: 02/13/17 TIME: 16:52 Proc Note GI Procedure Date 02/13/17 Indication: other (Anemia) Pre-procedure Diagnosis Anemia Post-procedure Diagnosis Impression: Moderate gastritis. Rule out internal infection. Biopsies obtained Otherwise normal EGD Plan: PPI therapy Consider CT enterography asked in or outpatient. . Procedure Performed: Endoscopy (with biopsies) Surgeon MCKINLEY GONSALES MD see signature line Clerical Associate none Anesthesia Type: MAC Anesthesiologist: SHAD BYRNE MD Tourniquet Time none EBL none Transfusion required none Biopsy 1: Gastric body and antrum Grafts/Implants none Tubes/Drains none Complication(s) none Disposition: PACU Procedure Description After informed consent, with the patient/relatives understanding the procedure, its indications, potential risks and complications, including but not limited to : allergic reaction, bleeding, perforation or infection, and after all pertinent questions were answered to the patients satisfaction, the patient/ relatives signed witnessed informed consent. Following this, premedication was administered slowly IV push under careful cardiovascular and respiratory monitoring with pulse oximetry, automatic blood pressure, and felt hat mellowing machine operator. Once the sedative effect was achieved the patient was place in the left lateral decubitus, the panendoscope was introduced and advanced under visual control. Careful examination of the upper gastrointestinal tract, both on insertion as well as withdrawal of the instrument disclosing the following findings: ESOPHAGUS: the mucosa of the entire esophagus was carefully examined and showed the following findings: the mucosa appears within normal limits. There is no evidence of esophagitis, varices, neoplasm, or stricture. No Hiatal Hernia identified. STOMACH: Upon entrance to the stomach air was insufflated, the gastric fregoso distended normally. The mucosa of the fundus, body and antrum of the stomach was carefully examined both head-on and on retroflexion, and showed the following findings: There is moderate erythema and edema mucosa of the antrum the stomach. Biopsies were obtained to rule out H. pylori infection. Otherwise the mucosa appears within normal limits with no abnormalities. There is no evidence of ulcers or neoplasm. PYLORUS: The pylorus was carefully examined and showed the following findings: the pylorus appears patent and within normal limits, with no evidence of gastric outlet obstruction. DUODENUM: The duodenal mucosa was carefully examined in the duodenal bulb as well as the second portion of the duodenum and showed the following findings: the mucosa appears unremarkable with no evidence of duodenitis, ulcer or neoplasm. Copies To: CC: MCKINLEY GONSALES MD, MORDO MD Feb 13, 2017 17:03
[2017-02-13] MEDS ORDERED: BARIUM SULF 2% 450 ML BTL (BERRY SMOOTHIE) PO ONE (18:30)
[2017-02-13 21:28] LABS: HEMATOCRIT 28.2 % (42.0-52.0); HEMOGLOBIN 9.3 g/dl (14.0-18.0)
[2017-02-14 02:53] VITALS: BP 127/70; RESP 18
[2017-02-14] MEDS: D5W-0.45 NACL + KCL 10 MEQ 1,000 ML IV SCH ×2 (02:54→14:24)
[2017-02-14] MEDS: PANTOPRAZOLE 40 MG INJ IV SCH (05:46)
[2017-02-14 06:30] LABS: HEMATOCRIT 26.2 % (42.0-52.0); HEMOGLOBIN 8.6 g/dl (14.0-18.0)
[2017-02-14 06:58] LABS: ALBUMIN 3.2 g/dl (3.3-4.9); ALBUMIN/GLOBULIN RATIO 1.1; BILIRUBIN,INDIRECT 0.3 mg/dl (0-1.1); BILIRUBIN,TOTAL 0.3 mg/dl (0.2-1.3); CALCIUM 8.3 mg/dl (8.4-10.2); CREATININE 1.19 mg/dl (0.61-1.24); POTASSIUM 3.6 mmol/L (3.5-5.1); TOTAL PROTEIN 6.1 g/dl (6.1-8.1)
[2017-02-14 07:45] VITALS: BP 149/82; RESP 16
[2017-02-14] MEDS ORDERED: BARIUM SULFATE 0.1% 450 ML BTL (VOLUMEN) PO ONE (08:34)
[2017-02-14] MEDS ORDERED: IOHEXOL 100 ML ONE (09:33)
[2017-02-14] MEDS ORDERED: SOD CHLORIDE 0.9% 100 ML ONE (09:33)
[2017-02-14] MEDS ORDERED: IOHEXOL 350MG/ML 50 ML BTL ONE (09:43)
[2017-02-14 14:06] VITALS: BP 167/90; RESP 16
--- NOTE | 2017-02-14 14:13 | RADRPT ---
PROCEDURE: CT abdomen and pelvis enterography without and with contrast. CLINICAL INDICATION: GI bleeding TECHNIQUE: A CT enterography study was performed on the [employer] CT scanner with contiguous high resolution thin slice axial images obtained through the abdomen and pelvis. Pre and postcontrast images of the abdo men were obtained. The patient was examined during the early arterial phase and portal venous phase after injection of 125 ml of Omnipaque 350. 1315 ml of volumen oral contrast was given. Coronal and sagittal reformatted images were obtained from the axial source images. Images were reviewed on a PACS workstation. One or more of the following dose reduction techniques were used: Automated exposure control. Adjustment of the mA and/or kV according to patient size. Use of iterative reconstruction technique. DICOM images are available DLP 1893.5 mGycm. CTDIvol 10.7 mGy COMPARISON: None. FINDINGS: The lung bases are clear. There is no evidence of bowel obstruction or appendicitis. There is a focus of eccentric hyperenhan cement seen involving that measures 1.8 cm seen in the coronal plane on series 601, image 42. There is no edema, fat deposition, or thickening. There is no evidence of mesenteric fat or vascular prol iferation. There is no free air or free fluid. There is a small gastric diverticulum seen at the po sterior margin of the gastric cardia. There is normal density and enhancement of the liver with no focal enhancing lesion or biliary ducta l dilatation. There are small nonenhancing foci consistent with hepatic cysts. The gallbladder is un remarkable without inflammation, and the portal vein is intact without thrombus. The spleen is unremarkable without mass. The adrenal glands are within normal limits without mass. The kidneys enhance symmetrically bilaterally without hydronephrosis or perinephric stranding. Ther e are no renal or ureteral calculi present. Bilateral nonenhancing renal cysts are present. The pancreas is unremarkable without focal lesion or surrounding inflammatory changes. There are no enlarged lymph nodes. Mild visible aortic atherosclerotic plaque is present. Degenerati ve changes are seen in the lumbar spine. The prostate is at the upper limits of normal in size. Bilateral small fat containing inguinal herni as are present. IMPRESSION: There is a 1.8 cm focal area of eccentric small bowel wall enhancement seen in the left lower quadra nt and this could represent ileus focus of hemorrhage or possibly a mucosal enhancing lesion within the small bowel. No other foci of acute or chronic inflammatory changes seen within the small large bowel with no darlene dence of obstruction or appendicitis. Mild aortic atherosclerosis is present. RPTAT: AA .Medina Fernández MD, MD Date Time Electronically viewed and signed by .Medina Fernández MD, on 02/14/2017 14:13 .J/
[2017-02-14] MEDS: hydrALAzine 20 MG INJ IV PRN (15:11)
--- NOTE | 2017-02-14 15:31 | PN ---
Date/Time of Note Date/Time of Note DATE: 02/14/17 TIME: 15:29 Assessment/Plan VTE Prophylaxis VTE Prophylaxis Intervention: SCD's Lines/Catheters IV Catheter Type (from Nrs): Peripheral IV Assessment/Plan Chief Complaint/Hosp Course Subjective: 02/11 Still bleeding. Bright red blood per rectum. No abdominal pain fever nausea vomiting. No family history of cancer etc. No warning signs. States he had some pumpkin seeds the other day. Dizziness weakness. No loss of speech or vision. /; still having dark stool. ~exertional fatigue. 02/13: No bleeding. Hungry. Colonoscopy only showed mild diverticulosis and hemorrhoids. EGD today. 02/14: No active bleeding. No abdominal pain fever dyspnea etc. Wants to go home. Objective: Vital signs stable. PE No pallor Reg +sm; no r/g Clear Bs+ mild tender nt nd; no r/r/g Edema rash A/P 1. Lower GI bleed? diverticulosis/ AVM? Stable, s/p colonoscopy. EGD-moderate gastritis. CT abdomen pelvis concerning for small bowel lesion. -May DC home if ok w gastroenterology with one-week follow-up. 2. Acute blood loss anemia 3. Chr hypertension 4. Sinus bradycardia asymptomatic. tsh ok. hold BB. 5. Systolic murmur. Check echo. Problems: Exam/Review of Systems Vital Signs Vitals Vital Signs Date Time Temp Pulse Resp B/P Pulse Ox O2 Delivery O2 Flow Rate FiO2 02/14/17 14:06 98.4 76 16 167/90 100 02/13/17 17:19 Room Air 02/13/17 16:44 5 Intake and Output 02/13/17 02/13/17 02/14/17 15:00 23:00 07:00 Intake Total 1445 ml 1795 ml Output Total 1000 ml 300 ml Balance 445 ml 1495 ml Results Result Diagram: 02/14/17 0549 02/14/17 0549 Results 24 hrs Laboratory Tests Test 02/13/17 21:18 02/14/17 05:49 Hemoglobin 9.3 L 8.6 L Hematocrit 28.2 L 26.2 L Sodium Level 142 Potassium Level 3.6 Chloride Level 105 Carbon Dioxide Level 29 Anion Gap 12 Blood Urea Nitrogen 11 Creatinine 1.19 Glucose Level 96 Calcium Level 8.3 L Magnesium Level 1.7 Total Bilirubin 0.3 Direct Bilirubin 0.00 Indirect Bilirubin 0.3 Aspartate Amino Transf (AST/SGOT) 22 Alanine Aminotransferase (ALT/SGPT) 32 Alkaline Phosphatase 38 L Total Protein 6.1 Albumin 3.2 L Globulin 2.90 Albumin/Globulin Ratio 1.10 Medications Medications Current Medications Ondansetron HCl (Zofran Inj) 4 mg Q6H PRN IV NAUSEA AND/OR VOMITING; Start at 20:30 Acetaminophen (Tylenol Tab) 650 mg Q6H PRN PO PAIN LEVEL 1-3 OR FEVER; Start 02/10/17 at 20:30 Docusate Sodium (Colace) 100 mg Q12H PRN PO CONSTIPATION; Start 02/10/17 at 20 :30 Bisacodyl (Dulcolax) 5 mg DAILY PRN PO CONSTIPATION; Start 02/10/17 at 20:30 Hydralazine HCl (Apresoline) 10 mg Q4H PRN IV ELEVATED SYSTOLIC BP Last administered on 02/14/17t 15:11; Admin Dose 10 MG; Start 02/10/17 at 23:00 Pantoprazole (Protonix Tab) 40 mg DAILY@06 PO ; Start 02/15/17 at 06:00 PAUL TEMPLE MD Feb 14, 2017 15:31
[2017-02-14] MEDS: LOSARTAN 50 MG TAB PO SCH (16:32)
[2017-02-14 20:00] VITALS: BP 143/86; PULSE 67; RESP 18
[2017-02-14 22:02] LABS: HEMATOCRIT 25.6 % (42.0-52.0); HEMOGLOBIN 8.4 g/dl (14.0-18.0)
[2017-02-15 03:00] VITALS: BP 142/89; PULSE 60; RESP 18
[2017-02-15 05:56] LABS: BASOPHILS % 0.2 % (0.0-2.0); EOSINOPHILS # 0.2 10^3/ul (0.0-0.5); EOSINOPHILS % 3.6 % (0.0-7.0); HEMOGLOBIN 8.4 g/dl (14.0-18.0); LYMPHOCYTES # 1.7 10^3/ul (0.8-2.9); LYMPHOCYTES % 36.2 % (15.0-51.0); MEAN CORPUSCULAR HEMOGLOBIN 28.1 pg (29.0-33.0); MEAN CORPUSCULAR HGB CONC 32.3 g/dl (32.0-37.0); MEAN PLATELET VOLUME 11.7 fl (7.4-10.4); MONOCYTE # 0.5 10^3/ul (0.3-0.9); MONOCYTES % 9.5 % (0.0-11.0); NEUTROPHIL # 2.4 10^3/ul (1.6-7.5); NEUTROPHILS % 50.3 % (39.0-77.0); PLATELET COUNT 155 10^3/UL (140-415); RED BLOOD COUNT 2.99 10^6/ul (4.70-6.10); WHITE BLOOD COUNT 4.7 10^3/ul (4.8-10.8)
[2017-02-15] MEDS ORDERED: PANTOPRAZOLE (EC) 40 MG TAB PO SCH (06:00)
[2017-02-15 06:32] LABS: ALBUMIN 3.3 g/dl (3.3-4.9); ALBUMIN/GLOBULIN RATIO 1.17; BILIRUBIN,INDIRECT 0.3 mg/dl (0-1.1); BILIRUBIN,TOTAL 0.3 mg/dl (0.2-1.3); CALCIUM 8.2 mg/dl (8.4-10.2); CREATININE 1.15 mg/dl (0.61-1.24); MAGNESIUM 1.8 mg/dl (1.7-2.5); PHOSPHORUS 4.2 mg/dl (2.5-4.9); POTASSIUM 3.7 mmol/L (3.5-5.1); TOTAL PROTEIN 6.1 g/dl (6.1-8.1)
[2017-02-15 07:36] VITALS: BP 145/82; RESP 18
[2017-02-15] MEDS: LOSARTAN 50 MG TAB PO SCH (08:43)
--- NOTE | 2017-02-15 10:49 | PN ---
Date/Time of Note Date/Time of Note DATE: 02/15/17 TIME: 10:48 Assessment/Plan VTE Prophylaxis VTE Prophylaxis Intervention: SCD's Lines/Catheters IV C[facility]ter Type (from [facility]): [place] [facility] Assessment/Plan Chief Complaint/Hosp Course Subjective: 02/11 Still bleeding. Bright red blood per rectum. No abdominal pain fever nausea vomiting. No family history of cancer etc. No warning signs. States he had some pumpkin seeds the other day. Dizziness weakness. No loss of speech or vision. ; still having dark stool. ~exertional fatigue. 02/13: No bleeding. Hungry. Colonoscopy only showed mild diverticulosis and hemorrhoids. EGD today. 02/14: No active bleeding. No abdominal pain fever dyspnea etc. Wants to go home. 02/15: No events H pylori positive? Objective: Vital signs stable. Path: MICROSCOPIC DIAGNOSIS: Stomach, antrum/body, biopsy: -- Antral mucosa showing severe chronic gastritis with intestinal metaplasia and benign lymphoid aggregate. -- Helicobacter pylori is identified in Giemsa stain (positive control concurrently reviewed). -- No evidence of dysplasia or malignancy. PE No pallor Reg +sm; no r/g Clear Bs+ mild tender nt nd; no r/r/g Edema rash A/P 1. Lower GI bleed? diverticulosis/ AVM? Stable, s/p colonoscopy. EGD-moderate gastritis. CT abd/ pel concerning for small bowel lesion. -May DC home if ok w gastroenterology with one-week follow-up. 2. Acute blood loss anemia 3. Chr hypertension 4. Sinus bradycardia asymptomatic. tsh ok. hold BB. 5. Systolic murmur. Check echo. Problems: Exam/Review of Systems Vital Signs Vitals Vital Signs Date Time Temp Pulse Resp B/P Pulse Ox O2 Delivery O2 Flow Rate FiO2 02/15/17 07:36 97.7 67 18 145/82 98 02/15/17 03:00 Room Air 02/13/17 16:44 5 Intake and Output 02/14/17 02/14/17 02/15/17 14:59 22:59 06:59 Intake Total 280 ml 2270 ml Balance 280 ml 2270 ml Results Result Diagram: 02/15/17 0529 02/15/17 0529 Results 24 hrs Laboratory Tests Test 02/14/17 21:22 02/15/17 05:29 Hemoglobin 8.4 L 8.4 L Hematocrit 25.6 L 26.0 L White Blood Count 4.7 L Red Blood Count 2.99 L Mean Corpuscular Volume 87.0 Mean Corpuscular Hemoglobin 28.1 L Mean Corpuscular Hemoglobin Concent 32.3 Red Cell Distribution Width 14.0 Platelet Count 155 # Mean Platelet Volume 11.7 H Neutrophils % 50.3 Lymphocytes % 36.2 Monocytes % 9.5 Eosinophils % 3.6 Basophils % 0.2 Nucleated Red Blood Cells % 0.0 Neutrophils # 2.4 Lymphocytes # 1.7 Monocytes # 0.5 Eosinophils # 0.2 Basophils # 0.0 Nucleated Red Blood Cells # 0.0 Sodium Level 141 Potassium Level 3.7 Chloride Level 103 Carbon Dioxide Level 28 Anion Gap 14 Blood Urea Nitrogen 11 Creatinine 1.15 Glucose Level 96 Calcium Level 8.2 L Phosphorus Level 4.2 Magnesium Level 1.8 Total Bilirubin 0.3 Direct Bilirubin 0.00 Indirect Bilirubin 0.3 Aspartate Amino Transf (AST/SGOT) 17 Alanine Aminotransferase (ALT/SGPT) 32 Alkaline Phosphatase 40 L Total Protein 6.1 Albumin 3.3 Globulin 2.80 Albumin/Globulin Ratio 1.17 Medications Medications Current Medications Ondansetron HCl (Zofran Inj) 4 mg Q6H PRN IV NAUSEA AND/OR VOMITING; Start at 20:30 Acetaminophen (Tylenol Tab) 650 mg Q6H PRN PO PAIN LEVEL 1-3 OR FEVER; Start 02/10/17 at 20:30 Docusate Sodium (Colace) 100 mg Q12H PRN PO CONSTIPATION; Start 02/10/17 at 20 :30 Bisacodyl (Dulcolax) 5 mg DAILY PRN PO CONSTIPATION; Start 02/10/17 at 20:30 Hydralazine HCl (Apresoline) 10 mg Q4H PRN IV ELEVATED SYSTOLIC BP Last administered on 02/14/17 15:11; Admin Dose 10 MG; Start 02/10/17 at 23:00 Pantoprazole (Protonix Tab) 40 mg DAILY@06 PO Last administered on 02/15/17 05:20; Admin Dose 40 MG; Start 02/15/17 at 06:00 Losartan Potassium (Cozaar) 50 mg DAILY PO Last administered on 02/15/17 08: 43; Admin Dose 50 MG; Start 02/14/17 at 16:00 PAUL TEMPLE MD Feb 15, 2017 10:49
--- NOTE | 2017-02-15 10:52 | PDOCDIS ---
Discharge Instructions CONDITION Patient Condition: Good ACTIVITY: Activity Restrictions: Slowly Increase Activity Do not Drive FOLLOW UP/APPOINTMENTS Follow-up Plan PCP 1wk Dr Loya 1wk PAUL TEMPLE MD Feb 15, 2017 10:52
[2017-02-15] MEDS ORDERED: LANS30CA47 PO (10:53)
--- NOTE | 2017-02-15 13:57 | PN ---
Date/Time of Note Date/Time of Note DATE: 02/15/17 TIME: 13:43 Assessment/Plan VTE Prophylaxis VTE Prophylaxis Intervention: SCD's Lines/Catheters IV [facility] Saline Lock Assessment/Plan Chief Complaint/Hosp Course Assessment: Hematochezia/Diarrhea/Anemia R/O IBD, Diverticular, Neoplasm, AVM, hemorrhoids vs others Colonoscopy 02/12/17 Impression: Mild R sided diverticulosis Moderate size internal hemorrhoids Normal terminal ileum EGD 02/13/17 Impression: Moderate gastritis. Rule out internal infection. Biopsies obtained Stomach, antrum/body, biopsy: -- Antral mucosa showing severe chronic gastritis with intestinal metaplasia and benign lymphoid aggregate. -- Helicobacter pylori is identified in Giemsa stain (positive control concurrently reviewed). -- No evidence of dysplasia or malignancy. Otherwise normal EGD Bx positive for H. pylori Hypertension Plan: H. pylori positive on bx- regimen has been rx. F/u with GI 3-4 weeks Patient seen in collaboration with Gary Loya Subjective: Course reviewed with nursing staff Patient interviewed and examined All labs, imaging and other results reviewed The patient feels well, no significant events over night. HGB without change in 24 hours. He current denies recal bleeding, abd pain , nausea, hematemesis, or melena. Instructed patient to follow up with GI in 3-4 weeks. Start regimen for H. pylori treatment. PHYSICAL EXAMINATION: GENERAL: Well developed, well nourished, alert & oriented x 3, in no acute distress SKIN: No lesions, no stigmata chronic liver disease, no evidence of bleeding diathesis LYMPHATIC: No palpable lymphadenopathy. HEAD: Normocephalic, atraumatic, no tenderness. EYES: Pupils equal reactive to light and accommodation, full extraocular movements, sclera clear, non-icteric, no discharge. EARS/NOSE AND THROAT: Ears normal, nose normal, oropharynx normal, oral membranes well hydrated without lesions. NECK: Supple, no masses, thyroid normal, CHEST: Inspection within normal limits. CARDIOVASCULAR: Heart: Regular rate and rhythm, no murmurs, gallops or rubs. RESPIRATORY: Lungs clear to auscultation and percussion, no wheezing, no rubs GASTROINTESTINAL AND LIVER: Abdomen: Soft, non tenderness, non-distended, no hernias, no masses, no organomegaly, no ascites, no guarding, no rebound tenderness, normoactive bowel sounds. Rectal: Deferred to colonoscopy GENITOURINARY: Male genitalia within normal limits. EXTREMITIES: No cyanosis, clubbing or edema. Problems: Exam/Review of Systems Vital Signs Vitals Vital Signs Date Time Temp Pulse Resp B/P Pulse Ox O2 Delivery O2 Flow Rate FiO2 02/15/17 07:36 97.7 67 18 145/82 98 02/15/17 03:00 Room Air 02/13/17 16:44 5 Intake and Output 02/14/17 02/14/17 02/15/17 14:59 22:59 06:59 Intake Total 280 ml 2270 ml Balance 280 ml 2270 ml Results Result Diagram: 02/15/17 0529 02/15/17 0529 Results 24 hrs Laboratory Tests Test 02/14/17 21:22 02/15/17 05:29 Hemoglobin 8.4 L 8.4 L Hematocrit 25.6 L 26.0 L White Blood Count 4.7 L Red Blood Count 2.99 L Mean Corpuscular Volume 87.0 Mean Corpuscular Hemoglobin 28.1 L Mean Corpuscular Hemoglobin Concent 32.3 Red Cell Distribution Width 14.0 Platelet Count 155 # Mean Platelet Volume 11.7 H Neutrophils % 50.3 Lymphocytes % 36.2 Monocytes % 9.5 Eosinophils % 3.6 Basophils % 0.2 Nucleated Red Blood Cells % 0.0 Neutrophils # 2.4 Lymphocytes # 1.7 Monocytes # 0.5 Eosinophils # 0.2 Basophils # 0.0 Nucleated Red Blood Cells # 0.0 Sodium Level 141 Potassium Level 3.7 Chloride Level 103 Carbon Dioxide Level 28 Anion Gap 14 Blood Urea Nitrogen 11 Creatinine 1.15 Glucose Level 96 Calcium Level 8.2 L Phosphorus Level 4.2 Magnesium Level 1.8 Total Bilirubin 0.3 Direct Bilirubin 0.00 Indirect Bilirubin 0.3 Aspartate Amino Transf (AST/SGOT) 17 Alanine Aminotransferase (ALT/SGPT) 32 Alkaline Phosphatase 40 L Total Protein 6.1 Albumin 3.3 Globulin 2.80 Albumin/Globulin Ratio 1.17 Medications Medications Current Medications Ondansetron HCl (Zofran Inj) 4 mg Q6H PRN IV NAUSEA AND/OR VOMITING; Start at 20:30 Acetaminophen (Tylenol Tab) 650 mg Q6H PRN PO PAIN LEVEL 1-3 OR FEVER; Start 02/10/17 at 20:30 Docusate Sodium (Colace) 100 mg Q12H PRN PO CONSTIPATION; Start 02/10/17 at 20 :30 Bisacodyl (Dulcolax) 5 mg DAILY PRN PO CONSTIPATION; Start 02/10/17 at 20:30 Hydralazine HCl (Apresoline) 10 mg Q4H PRN IV ELEVATED SYSTOLIC BP Last administered on 02/14/17 15:11; Admin Dose 10 MG; Start 02/10/17 at 23:00 Losartan Potassium (Cozaar) 50 mg DAILY PO Last administered on 02/15/17 08: 43; Admin Dose 50 MG; Start 02/14/17 at 16:00 MINAL LONG Feb 15, 2017 13:53
[2017-02-15 14:23] VITALS: BP 153/86; RESP 18
--- NOTE | 2017-02-15 16:01 | RADRPT ---
Echocardiogram Report Patient Name: SHANDRA AUGUSTINE Gender: Male Date: 1970 Study Date: 14-Feb-2017 Forestry Supervisor: ko Mcmillan [facility] Location: [id number] Ref. Physician: PAUL TEMPLE Quality: Adequate Procedures: Transthoracic echocardiogram with complete 2D, M-Mode, and doppler examination. Indications: Murmur. 2D/M Mode Doppler Measurement Value Normal Ranges Measurement Value Normal Ranges LVIDd 2D 4.1 3.5 - 5.6 cm AV Mean Migel 1.5 m/sec LVIDs 2D 2.7 2.1 - 4.1 cm AV Mean PG 10.0 mmHg FS 2D 35.0 % AV Peak Migel 2.0 m/sec LVPWd 2D 1.5 0.6 - 1.1 cm AV Peak PG 16.0 mmHg IVSd 2D 1.7 0.6 - 1.1 cm AV VTI 41.0 cm IVS/LVPW 2D 1.1 LVOT Peak Migel 1.7 m/sec AoR Diam 2D 3.2 2.0 - 3.7 cm LVOT Peak PG 12.0 mmHg LA/Ao 2D 1 0 - 1 MV E Peak Migel 1.2 m/sec EDV 2D 71.0 cm3 MV A Peak Migel 0.9 m/sec ESV 2D 19.5 cm3 MV E/A 1.3 LA Dimen 2D 3.8 2.3 - 4.0 cm MV Decel Time 211 msec MV E/A 1.3 Findings Left Ventricle: Normal left ventricular systolic function. Normal left ventricular cavity size. Moderate concentric left ventricular hypertrophy. Ejection fraction is visually estimated at 65 %. Abnormal Diastolic Function. Right Ventricle: Normal right ventricular size. Normal right ventricular systolic function. Left Atrium: The left atrium is normal in size. Right Atrium: The right atrium is normal in size. Mitral Valve: Normal appearance and function of the mitral valve with trace physiologic regurgitation. Aortic Valve: No significant aortic stenosis or insufficiency. Aortic sclerosis without stenosis. Tricuspid Valve: Normal appearance of the tricuspid valve. Unable to obtain RVSP due to minimal presence of tricuspid regurgitation. There is trace tricuspid regurgitation. Pulmonic Valve: Pulmonic valve not well visualized. There is trace pulmonic regurgitation. Pericardium: Normal pericardium with no significant pericardial effusion. Aorta: Normal aortic root. IVC: Normal size and normal respiratory collapse consistent with normal right atrial pressure. Conclusions Normal left ventricular systolic function. Normal left ventricular cavity size. Moderate concentric left ventricular hypertrophy. Ejection fraction is visually estimated at 65 %. Abnormal Diastolic Function. No significant aortic stenosis or insufficiency. Aortic sclerosis without stenosis. Normal appearance and function of the mitral valve with trace physiologic regurgitation. Normal appearance of the tricuspid valve. Unable to obtain RVSP due to minimal presence of tricuspid regurgitation. There is trace tricuspid regurgitation. Electronically Signed By: Jason Domingo 15-Feb-2017 16:01:15 -0800 Patient Name: SHANDRA AUGUSTINE Study Date: 14-Feb-2017 [id number]
--- NOTE | 2017-02-15 16:19 | DS ---
Date/Time of Note Date/Time of Note DATE: 02/15/17 TIME: 16:14 Discharge Summary Admission/Discharge Info Admit Date/Time Feb 10, 2017 at 18:36 Discharge Date/Time Discharge Diagnosis GI Bleed H pylori gastritis. Patient Condition: Stable Consults GI Procedures Colonoscopy/ EGD/ CT AP Hx of Present Illness 46y M admitted w GIB. Hospital Course Seen & evaluated for GIB. Colonoscopy- mild diverticulosis/ hemorrhoids. Therefore, next underwent EGD. Mod gastritis seen. Path shows H pylori+. Will go home on Prevpac. The CT results appear to be an incidentaloma. Patient will follow up w GI in 2-4wks. Subjective: 02/11 Still bleeding. Bright red blood per rectum. No abdominal pain fever nausea vomiting. No family history of cancer etc. No warning signs. States he had some pumpkin seeds the other day. Dizziness weakness. No loss of speech or vision. ; still having dark stool. ~exertional fatigue. 02/13: No bleeding. Hungry. Colonoscopy only showed mild diverticulosis and hemorrhoids. EGD today. 02/14: No active bleeding. No abdominal pain fever dyspnea etc. Wants to go home. 02/15: No events H pylori positive. Objective: Vital signs stable. Path: MICROSCOPIC DIAGNOSIS: Stomach, antrum/body, biopsy: -- Antral mucosa showing severe chronic gastritis with intestinal metaplasia and benign lymphoid aggregate. -- Helicobacter pylori is identified in Giemsa stain (positive control concurrently reviewed). -- No evidence of dysplasia or malignancy. PE No pallor Reg +sm; no r/g Clear Bs+ mild tender nt nd; no r/r/g Edema rash A/P 1. GI bleed- H pylori assoc. Mild diverticulosis. Stable, discharge home. s/p colonoscopy; EGD; CT abd/ pel concerning for small bowel lesion. 2. Acute blood loss anemia 3. Chr hypertension 4. Sinus bradycardia asymptomatic. tsh ok. holding BB. 5. Systolic murmur. CT A/P There is a 1.8 cm focal area of eccentric small bowel wall enhancement seen in the left lower quadrant and this could represent ileus focus of hemorrage or possibly a mucosal enhancing lesion within the small bowel. No other foci of acute or chronic inflammatory changes seen within the small large bowel with no evidence of obstruction or appendicitis. Mild aortic atherosclerosis is present. RPTAT: AA .Medina Fernández MD, MD Date Time Electronically viewed and signed by .Medina Fernández MD 2D Echo Conclusions Normal left ventricular systolic function. Normal left ventricular cavity size. Moderate concentric left ventricular hypertrophy. Ejection fraction is visually estimated at 65 %. Abnormal Diastolic Function. No significant aortic stenosis or insufficiency. Aortic sclerosis without stenosis. Normal appearance and function of the mitral valve with trace physiologic regurgitation. Normal appearance of the tricuspid valve. Unable to obtain RVSP due to minimal presence of tricuspid regurgitation. There is trace tricuspid regurgitation. Electronically Signed By: Jason Tolentinodeondre 15-Feb-2017 16:01:15 Home Meds Active Scripts Lansoprazole* (Prevacid*) 30 Mg Capsule., 30 MG PO DAILY for 14 Days, CAP Prov:PAUL TEMPLE MD 02/15/17 Reported Medications Losartan Potassium* (Losartan Potassium*) 50 Mg Tablet, 50 MG PO DAILY, TAB 02/10/17 Discontinued Reported Medications [ecorin] 75MG No Conflict Check, PO DAILY 02/11/17 Atenolol* (Atenolol*) 50 Mg Tablet, 100 MG PO DAILY, #30 TAB 02/10/17 Follow-up Plan PCP 1wk Dr Loya 1wk Primary Care Provider Care Physician No Primary Time spent on discharge: < 30 minutes Pending Labs Laboratory Tests Test 02/14/17 21:22 02/15/17 05:29 Hemoglobin 8.4g/dl (14.0-18.0) 8.4g/dl (14.0-18.0) Hematocrit 25.6% (42.0-52.0) 26.0% (42.0-52.0) White Blood Count 4.710^3/ul (4.8-10.8) Red Blood Count 2.9910^6/ul (4.70-6.10) Mean Corpuscular Volume 87.0fl (82.0-101.0) Mean Corpuscular Hemoglobin 28.1pg (29.0-33.0) Mean Corpuscular Hemoglobin Concent 32.3g/dl (32.0-37.0) Red Cell Distribution Width 14.0% (11.5-14.5) Platelet Count 58457^3/UL (140-415) Mean Platelet Volume 11.7fl (7.4-10.4) Neutrophils % 50.3% (39.0-77.0) Lymphocytes % 36.2% (15.0-51.0) Monocytes % 9.5% (0.0-11.0) Eosinophils % 3.6% (0.0-7.0) Basophils % 0.2% (0.0-2.0) Nucleated Red Blood Cells % 0.0/100WBC (0.0-0.0) Neutrophils # 2.410^3/ul (1.6-7.5) Lymphocytes # 1.710^3/ul (0.8-2.9) Monocytes # 0.510^3/ul (0.3-0.9) Eosinophils # 0.210^3/ul (0.0-0.5) Basophils # 0.010^3/ul (0.0-0.1) Nucleated Red Blood Cells # 0.010^3/ul (0.0-0.0) Sodium Level 141mmol/L (135-144) Potassium Level 3.7mmol/L (3.5-5.1) Chloride Level 103mmol/L (97-110) Carbon Dioxide Level 28mmol/L (21-31) Anion Gap 14 (8-16) Blood Urea Nitrogen 11mg/dl (7-20) Creatinine 1.15mg/dl (0.61-1.24) Glucose Level 96mg/dl (70-220) Calcium Level 8.2mg/dl (8.4-10.2) Phosphorus Level 4.2mg/dl (2.5-4.9) Magnesium Level 1.8mg/dl (1.7-2.5) Total Bilirubin 0.3mg/dl (0.2-1.3) Direct Bilirubin 0.00mg/dl (0.00-0.20) Indirect Bilirubin 0.3mg/dl (0-1.1) Aspartate Amino Transf (AST/SGOT) 17IU/L (15-46) Alanine Aminotransferase (ALT/SGPT) 32IU/L (13-69) Alkaline Phosphatase 40IU/L (42-121) Total Protein 6.1g/dl (6.1-8.1) Albumin 3.3g/dl (3.3-4.9) Globulin 2.80g/dl (1.3-3.2) Albumin/Globulin Ratio 1.17 PAUL TEMPLE MD Feb 15, 2017 16:19
[2017-02-16] MEDS ORDERED: CLARITHROMYCIN 500 MG TAB PO SCH (09:00)
[2017-02-16] MEDS ORDERED: AMOXICILLIN 500 MG CAP PO SCH (09:00)
[2017-02-16] MEDS ORDERED: LANSOPRAZOLE 30 MG CAP PO SCH (09:00)
== END 2017-02-15 16:10 | disposition home or self-care (01) | DRG 378 ==
LOC: E/R 16:40 → MS2 18:36
PROVIDERS: ADMIT Family Medicine; ATTEND Family Medicine
PROC: 0DJD8ZZ Inspection of Lower Intestinal Tract, Via Natural or Artificial Opening Endoscopic (ICD-10-PCS; principal; 2017-02-12 16:00)
PROC: 0DB68ZX Excision of Stomach, Via Natural or Artificial Opening Endoscopic, Diagnostic (ICD-10-PCS; 2017-02-13)
PROC: 30233N1 Transfusion of Nonautologous Red Blood Cells into Peripheral Vein, Percutaneous Approach (ICD-10-PCS; 2017-02-13)
DX: K57.91 Diverticulosis of intestine, part unspecified, without perforation or abscess with bleeding (principal); D62 Acute posthemorrhagic anemia; D69.6 Thrombocytopenia, unspecified; K29.70 Gastritis, unspecified, without bleeding; I10 Essential (primary) hypertension; R00.1 Bradycardia, unspecified; E87.6 Hypokalemia; B96.81 Helicobacter pylori [H. pylori] as the cause of diseases classified elsewhere; K64.8 Other hemorrhoids
CPT/HCPCS: 36415; 36430; 71010; 74177; 80048; 80053; 80061; 82306; 83036; 83540; 83735; 84100; 84443; 85014; 85018; 85025; 85610; 85730; 86703; 86803; 86850; 86900; 86901; 86920; 88305; 88312; 93005; 93306; C9113; J0360; J3480; J7030; P9016; Q9967

== ENCOUNTER 2017-10-03 10:51 | Inpatient (IN) | END 2017-10-04 18:57 | disposition home or self-care (01) | DRG 378 ==